=== PATIENT | male | born 1950 | race Caucasian/White ===

== ENCOUNTER 2017-02-25 16:44 | Inpatient (IN) | payer OTHER, MEDICARE ==
[2017-02-25] VITALS (7 sets, daily range): BP systolic 123–126; BP diastolic 44–47; PULSE 102–117; RESP 18; TEMP 93.8–94.1; O2SAT 98–100
[2017-02-25] MEDS ORDERED: MIDAZOLAM HCL 5 MG/ML VIAL (1 ML) ONE ×2 (16:56→17:42)
[2017-02-25 17:06] LABS: AUTOMATED NEUTROPHIL # 6.9 TH/MM3 (1.8-7.7); BASOPHIL # 0.1 TH/MM3 (0-0.2); BASOPHIL % 0.7 % (0.0-2.0); EOSINOPHIL # 0.6 TH/MM3 (0-0.4); EOSINOPHIL % 5.3 % (0.0-4.0); HEMATOCRIT 26.3 % (39.0-51.0); HEMO FLAGS DIFF FINAL; LYMPH % 23.9 % (9.0-44.0); LYMPHOCYTE # 2.7 TH/MM3 (1.0-4.8); MEAN CELL VOLUME 102.9 FL (80.0-100.0); MEAN CORPUSCULAR HEMOGLOBIN 34.8 PG (27.0-34.0); MEAN CORPUSCULAR HGB CONC 33.8 % (32.0-36.0); MONO % 9.1 % (0.0-8.0); PLATELET COUNT 128 TH/MM3 (150-450); RED BLOOD COUNT 2.56 MIL/MM3 (4.50-5.90); RED CELL DISTRIBUTION WIDTH 13.7 % (11.6-17.2); WHITE BLOOD COUNT 11.4 TH/MM3 (4.0-11.0)
[2017-02-25 17:08] LABS: I-STAT POTASSIUM 3.3 MMOL/L (3.5-4.9)
[2017-02-25 17:17] LABS: APTT (PATIENT) 32.5 SEC (24.3-30.1); INTERNATIONAL NORMALIZED RATIO 1.4 RATIO; PROTHROMBIN TIME - PATIENT 14.6 SEC (9.8-11.6)
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
[2017-02-25] MEDS ORDERED: MIDAZOLAM 100 MG/100 ML INJ 100 ML IV PRN (17:30)
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
[2017-02-25] MEDS ORDERED: MIDAZOLAM 100 MG/100 ML INJ 100 ML ONE (17:42)
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
[2017-02-25 18:39] LABS: BLOOD GAS BASE EXCESS -11.2 mmol/L (-2-2); BLOOD GAS CARBOXYHEMOGLOBIN 0.6 % (0-4); BLOOD GAS HCO3 17 mmol/L (22-26); BLOOD GAS METHEMOGLOBIN 1.3 % (0-2); BLOOD GAS O2 HGB SATURATION 97 % (90-100); BLOOD GAS OXYGEN CONTENT 11.2 Vol % (12.0-20.0); BLOOD GAS PCO2 55 mmHg (38-42); BLOOD GAS PO2 241 mmHg (61-120); BLOOD GAS TOTAL HGB 7.7 G/DL (12.0-16.0); TEMP CORR TO 98.6
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
[2017-02-25 18:41] LABS: CRITICAL VALUE YES; DRAW SITE ART LINE; FIO2 100 %; OXYGEN DEVICE VENTILATOR; STAT YES
[2017-02-25] MEDS ORDERED: TRANEXAMIC ACID 1,000 MG/100 ML NS INTRA-OP IV ONE ×2 (18:45)
[2017-02-25 18:47] LABS: AUTOMATED NEUTROPHIL # 11.5 TH/MM3 (1.8-7.7); BASOPHIL # 0.1 TH/MM3 (0-0.2); BASOPHIL % 0.6 % (0.0-2.0); EOSINOPHIL # 0.3 TH/MM3 (0-0.4); EOSINOPHIL % 1.9 % (0.0-4.0); LYMPH % 12.7 % (9.0-44.0); LYMPHOCYTE # 1.9 TH/MM3 (1.0-4.8); MEAN CELL VOLUME 97.4 FL (80.0-100.0); MEAN CORPUSCULAR HEMOGLOBIN 32.4 PG (27.0-34.0); MEAN CORPUSCULAR HGB CONC 33.3 % (32.0-36.0); MONO % 8.4 % (0.0-8.0); NEUT % 76.4 % (16.0-70.0); PLATELET COUNT 89 TH/MM3 (150-450); RED BLOOD COUNT 2.36 MIL/MM3 (4.50-5.90); RED CELL DISTRIBUTION WIDTH 16.3 % (11.6-17.2)
[2017-02-25] MEDS ORDERED: IOHEXOL 350 MG/ML 10 ML VIAL (for RAD DIAG) IVCONTRAST ONE (18:48)
[2017-02-25] MEDS ORDERED: ceFAZolin 2 GM PREMIX 50 ML IV ONE (18:55)
[2017-02-25 18:56] LABS: HEMO FLAGS AUTO DIFF
[2017-02-25] MEDS ORDERED: PHENYLEPHRINE HCL 10 MG/ML VIAL ONE (19:04)
[2017-02-25 19:23] LABS: APTT (PATIENT) 39.2 SEC (24.3-30.1); INTERNATIONAL NORMALIZED RATIO 1.6 RATIO; PROTHROMBIN TIME - PATIENT 15.7 SEC (9.8-11.6)
[2017-02-25 19:46] LABS: BLOOD GAS BASE EXCESS -9.3 mmol/L (-2-2); BLOOD GAS CARBOXYHEMOGLOBIN 0.5 % (0-4); BLOOD GAS HCO3 18 mmol/L (22-26); BLOOD GAS METHEMOGLOBIN 1.2 % (0-2); BLOOD GAS O2 HGB SATURATION 97 % (90-100); BLOOD GAS OXYGEN CONTENT 15.8 Vol % (12.0-20.0); BLOOD GAS PCO2 49 mmHg (38-42); BLOOD GAS PO2 279 mmHg (61-120); BLOOD GAS TOTAL HGB 11.1 G/DL (12.0-16.0); FIO2 83 %; OXYGEN DEVICE VENTILATOR; TEMP CORR TO 98.6; VENT SETTINGS O.R. GAS
[2017-02-25 19:47] LABS: STAT YES
[2017-02-25 19:49] LABS: CRITICAL VALUE YES; DRAW SITE O.R. GAS
[2017-02-25] MEDS ORDERED: SODIUM BICARBONATE 8.4% INJ 50 MEQ/50 ML SYR ONE (19:54)
[2017-02-25 20:00] LABS: AUTOMATED NEUTROPHIL # 11.7 TH/MM3 (1.8-7.7); BASOPHIL # 0.1 TH/MM3 (0-0.2); BASOPHIL % 0.7 % (0.0-2.0); EOSINOPHIL # 0.2 TH/MM3 (0-0.4); EOSINOPHIL % 1.2 % (0.0-4.0); HEMATOCRIT 33.3 % (39.0-51.0); LYMPH % 10.2 % (9.0-44.0); LYMPHOCYTE # 1.5 TH/MM3 (1.0-4.8); MEAN CELL VOLUME 93.9 FL (80.0-100.0); MEAN CORPUSCULAR HEMOGLOBIN 30.9 PG (27.0-34.0); MEAN CORPUSCULAR HGB CONC 32.9 % (32.0-36.0); MONO % 9.2 % (0.0-8.0); NEUT % 78.7 % (16.0-70.0); PLATELET COUNT 60 TH/MM3 (150-450); RED BLOOD COUNT 3.55 MIL/MM3 (4.50-5.90); RED CELL DISTRIBUTION WIDTH 16.2 % (11.6-17.2); WHITE BLOOD COUNT 14.9 TH/MM3 (4.0-11.0)
[2017-02-25 20:02] LABS: HEMO FLAGS AUTO DIFF
[2017-02-25] MEDS ORDERED: FUROSEMIDE 40 MG/4 ML VIAL ONE (20:02)
[2017-02-25 20:06] LABS: BANDS 12 % (0-6); EOSINOPHILS 1 % (0-4); METAMYELOCYTES 3 % (0-1); NEUTROPHIL # MANUAL DIFF 13.7 TH/MM3 (1.8-7.7); POLYS (SEG NEUTROPHILS) 76 % (16-70); WBC DIFF SAMPLE 100
[2017-02-25 20:07] LABS: ACANTHOCYTES OCC (NORMAL); PLATELET ESTIMATE SMEAR LOW (NORMAL); PLATELET MORPHOLOGY NORMAL (NORMAL); SCAN/DIFF FINAL DIFF MANUAL
[2017-02-25] MEDS ORDERED: CHLORHEXIDINE GLUCONATE 2 % 1 PACK (2 CLOTHS) TOP PRN (20:15)
[2017-02-25] MEDS ORDERED: SODIUM CHLORIDE 0.9% FLUSH 10 ML FLUSH IV FLUSH PRN (20:15)
[2017-02-25] MEDS ORDERED: MISCELLANEOUS NURSING INFORMATION XX SCH (20:15)
[2017-02-25 20:20] LABS: APTT (PATIENT) 56.7 SEC (24.3-30.1); INTERNATIONAL NORMALIZED RATIO 1.8 RATIO; PROTHROMBIN TIME - PATIENT 18.1 SEC (9.8-11.6)
[2017-02-25] MEDS ORDERED: TERBUTALINE INJ 1 MG/ML AMP SQ PRN (20:30)
[2017-02-25 20:34] LABS: BICARBONATE 20.6 MEQ/L (21.0-32.0)
[2017-02-25 20:49] LABS: ACANTHOCYTES OCC (NORMAL); BANDS 19 % (0-6); EOSINOPHILS 2 % (0-4); METAMYELOCYTES 1 % (0-1); MYELOCYTES 1 % (0-0); NEUTROPHIL # MANUAL DIFF 12.8 TH/MM3 (1.8-7.7); PLATELET ESTIMATE SMEAR LOW (NORMAL); PLATELET MORPHOLOGY NORMAL (NORMAL); POLYS (SEG NEUTROPHILS) 65 % (16-70); SCAN/DIFF FINAL DIFF MANUAL; WBC DIFF SAMPLE 100
[2017-02-25 21:12] LABS: CALCIUM-PROTEIN CORRECTED 7.6 MG/DL (8.5-10.1)
[2017-02-25] MEDS: PHENYLEPHRINE 40 MG in D5W 500 ML IV PRN (21:15)
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
--- NOTE | 2017-02-25 21:26 | RADRPT ---
EXAM DATE/TIME: 02/25/2017 19:48 [facility] COMPARISON: No previous studies available for comparison. INDICATIONS : Instrument count- Trauma alert. MEDICAL HISTORY : None. SURGICAL HISTORY : None. ENCOUNTER: Initial ACUITY: 1 day PAIN SCORE: Non-responsive. LOCATION: Abdomen. FINDINGS: A single AP image of the abdomen has been obtained. Surgical instruments are not seen. CONCLUSION: Surgical instruments are not seen. Javy Hong MD on February 25, 2017 at 21:23 Board Certified Radiologist. This report was verified electronically.
[2017-02-25 21:49] LABS: BLOOD GAS CARBOXYHEMOGLOBIN 1.1 % (0-4); BLOOD GAS HCO3 20 mmol/L (22-26); BLOOD GAS METHEMOGLOBIN 1.2 % (0-2); BLOOD GAS O2 HGB SATURATION 95 % (90-100); BLOOD GAS OXYGEN CONTENT 13.7 Vol % (12.0-20.0); BLOOD GAS PCO2 45 mmHg (38-42); BLOOD GAS PO2 92 mmHg (61-120); BLOOD GAS TOTAL HGB 10.2 G/DL (12.0-16.0); TEMP CORR TO 98.6
[2017-02-25 21:50] LABS: CRITICAL VALUE YES; DRAW SITE ALINE; FIO2 100 %; OXYGEN DEVICE VENTILATOR; STAT NO; ULNAR PULSE PRESENT
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
[2017-02-25 23:55] LABS: HEMATOCRIT 29.5 % (39.0-51.0)
[2017-02-26] VITALS (27 sets, daily range): BP systolic 40–118; BP diastolic 32–64; PULSE 1–130; RESP 18–26; TEMP 94–100.1; O2SAT 0–100
[2017-02-26] MEDS: SODIUM CHLOR 0.9% 1000 ML INJ 1,000 ML IV SCH ×3 (00:19→03:31)
[2017-02-26] MEDS ORDERED: TERBUTALINE INJ 1 MG/ML AMP SQ PRN (02:30)
[2017-02-26] MEDS ORDERED: MAGNESIUM SULFATE INJ 2 GM in SODIUM CHLORIDE 0.9% INJ 96 ML IV PRN (02:30)
[2017-02-26] MEDS ORDERED: CALCIUM GLUCONATE INJ 2 GM in DEXTROSE 5% IN WATER 100ML INJ 100 ML IV ONE ×2 (02:30)
[2017-02-26] MEDS ORDERED: SODIUM BICARBONATE 8.4% INJ 50 MEQ/50 ML SYR IV PUSH ONE (02:30)
[2017-02-26] MEDS ORDERED: SODIUM PHOSPHATE INJ 30 MMOL in SODIUM CHLOR 0.9% 250 ML INJ 240 ML IV PRN (02:30)
[2017-02-26] MEDS ORDERED: POTASSIUM CHLORIDE 25 MEQ EFFERVESCENT TAB PO PRN (02:30)
[2017-02-26] MEDS ORDERED: POTASSIUM PHOSPHATE MONOBASIC 500 MG TAB PO PRN (02:30)
[2017-02-26] MEDS ORDERED: POTASSIUM PHOSPHATE MONOBASIC 500 MG TAB PO/TUBE PRN (02:30)
[2017-02-26] MEDS ORDERED: MAGNESIUM OXIDE 400 MG TAB PO PRN (02:30)
[2017-02-26] MEDS ORDERED: POTASSIUM CHLOR 20 MEQ PREMIX 100 ML IV PRN ×2 (02:30)
[2017-02-26] MEDS ORDERED: MAGNESIUM SULFATE INJ 4 GM in SODIUM CHLORIDE 0.9% INJ 92 ML IV PRN (02:30)
[2017-02-26] MEDS ORDERED: POTASSIUM PHOSPHATE INJ 30 MMOL in SODIUM CHLOR 0.9% 250 ML INJ 250 ML IV PRN (02:30)
[2017-02-26] MEDS ORDERED: POTASSIUM CHLOR 40 MEQ PREMIX 100 ML IV PRN ×2 (02:30)
[2017-02-26] MEDS: NOREPINEPHRINE-DEXTROSE DRIP 250 ML IV PRN ×3 (02:32→11:49)
[2017-02-26] MEDS: PHENYLEPHRINE 40 MG in D5W 500 ML IV PRN ×2 (02:32→04:51)
[2017-02-26 03:35] LABS: AUTOMATED NEUTROPHIL # 12.2 TH/MM3 (1.8-7.7); BASOPHIL # 0.1 TH/MM3 (0-0.2); BASOPHIL % 0.6 % (0.0-2.0); EOSINOPHIL # 0.1 TH/MM3 (0-0.4); HEMATOCRIT 27.7 % (39.0-51.0); HEMO FLAGS DIFF FINAL; LYMPH % 7.3 % (9.0-44.0); LYMPHOCYTE # 1.1 TH/MM3 (1.0-4.8); MEAN CELL VOLUME 93.8 FL (80.0-100.0); MEAN CORPUSCULAR HEMOGLOBIN 31.4 PG (27.0-34.0); MEAN CORPUSCULAR HGB CONC 33.4 % (32.0-36.0); MONO % 10.4 % (0.0-8.0); NEUT % 80.7 % (16.0-70.0); PLATELET COUNT 135 TH/MM3 (150-450); RED BLOOD COUNT 2.96 MIL/MM3 (4.50-5.90); RED CELL DISTRIBUTION WIDTH 16.5 % (11.6-17.2); WHITE BLOOD COUNT 15.1 TH/MM3 (4.0-11.0)
[2017-02-26 03:42] LABS: INTERNATIONAL NORMALIZED RATIO 1.2 RATIO; PROTHROMBIN TIME - PATIENT 12.5 SEC (9.8-11.6)
[2017-02-26 03:58] LABS: BICARBONATE 18.5 MEQ/L (21.0-32.0); MAGNESIUM 1.5 MG/DL (1.5-2.5); POTASSIUM 4.3 MEQ/L (3.5-5.1); TOTAL BILIRUBIN ADULT 2.1 MG/DL (0.2-1.0)
[2017-02-26] MEDS ORDERED: CHLORHEXIDINE GLUCONATE 2 % 1 PACK (2 CLOTHS) TOP SCH (04:00)
[2017-02-26 04:01] LABS: CALCIUM-PROTEIN CORRECTED 7.1 MG/DL (8.5-10.1)
--- NOTE | 2017-02-26 04:38 | PD.PROCEDR ---
Procedure Note Procedure Centerline placement A time-out was completed verifying correct patient, procedure, site, positioning , and special equipment if applicable. The patient was placed in a dependent position appropriate for central line placement based on the vein to be cannulated. The patients left shoulder was prepped and draped in sterile fashion. 1% Lidocaine was used to anesthetize the surrounding skin area. A triple lumen 9-[place] Cord[place] catheter was introduced into the the left subclavian vein using the Seldinger technique. The catheter was threaded smoothly over the guide wire and appropriate blood return was obtained. Each lumen of the catheter was evacuated of air and flushed with sterile saline. The catheter was then sutured in place to the skin and a sterile dressing applied. Perfusion to the extremity distal to the point of catheter insertion was checked and found to be adequate. Estimated Blood Loss: 1ml The patient tolerated the procedure well and there were no complications. Tony Leach MD Feb 26, 2017 04:38
--- NOTE | 2017-02-26 06:06 | RADRPT ---
EXAM DATE/TIME: 02/26/2017 03:12 [facility] COMPARISON: CHEST SINGLE AP, February 25, 2017, 16:45. INDICATIONS : Central line placement. MEDICAL HISTORY : None. SURGICAL HISTORY : None. ENCOUNTER: Subsequent ACUITY: 2 days PAIN SCORE: Non-responsive. LOCATION: Bilateral FINDINGS: Portable AP view of the chest demonstrates a normal-sized cardiac silhouette in this patient post med heather sternotomy. ETT and nasogastric tube are present. Left subclavian central line has been placed an d the distal tip is at the superior vena cava and brachiocephalic vein junction. Left chest tube is p resent and no pneumothorax is visualized. There is bibasilar airspace opacity. CONCLUSION: 1. Left subclavian central line distal tip is at the SVC brachiocephalic vein junction. No pneumothor ax is seen. 2. Left chest tube remains present and there is bibasilar opacity representing either atelectasis or consolidation. Javy Beck MD on February 26, 2017 at 6:03 Board Certified Radiologist. This report was verified electronically.
[2017-02-26 08:02] LABS: BLOOD GAS BASE EXCESS -12.6 mmol/L (-2-2); BLOOD GAS CARBOXYHEMOGLOBIN 0.8 % (0-4); BLOOD GAS HCO3 15 mmol/L (22-26); BLOOD GAS METHEMOGLOBIN 1.2 % (0-2); BLOOD GAS O2 HGB SATURATION 92 % (90-100); BLOOD GAS OXYGEN CONTENT 11.2 Vol % (12.0-20.0); BLOOD GAS PCO2 43 mmHg (38-42); BLOOD GAS PO2 76 mmHg (61-120); BLOOD GAS TOTAL HGB 8.5 G/DL (12.0-16.0); CRITICAL VALUE YES; DRAW SITE ART LINE; FIO2 100 %; NUMBER OF ARTERIAL PUNCTURES 0; OXYGEN DEVICE VENTILATOR; STAT YES; TEMP CORR TO 98.6; ULNAR PULSE PRESENT; VENT SETTINGS PRVC18/550/1.0/+8
[2017-02-26] MEDS ORDERED: SODIUM CHLOR 0.9% 250 ML INJ 250 ML IV ONE ×2 (08:15)
[2017-02-26] MEDS: MAGNESIUM SULFATE 1 GM PREMIX 100 ML IV SCH ×2 (08:45→08:50)
[2017-02-26] MEDS ORDERED: CALCIUM CHLORIDE 10% SOLN 1 GRAM/10 ML SYR ONE ×2 (08:50→09:03)
[2017-02-26] MEDS ORDERED: CALCIUM GLUCONATE INJ 3 GM in SODIUM CHLORIDE 0.9% INJ 100 ML IV ONE (09:00)
[2017-02-26 09:16] LABS: BLOOD GAS BASE EXCESS -12.5 mmol/L (-2-2); BLOOD GAS CARBOXYHEMOGLOBIN 0.8 % (0-4); BLOOD GAS HCO3 14 mmol/L (22-26); BLOOD GAS O2 HGB SATURATION 90 % (90-100); BLOOD GAS OXYGEN CONTENT 12.9 Vol % (12.0-20.0); BLOOD GAS PCO2 36 mmHg (38-42); BLOOD GAS PO2 63 mmHg (61-120); BLOOD GAS TOTAL HGB 10.2 G/DL (12.0-16.0); CRITICAL VALUE YES; OXYGEN DEVICE VENTILATOR; TEMP CORR TO 98.6
[2017-02-26 09:17] LABS: DRAW SITE ART LINE; FIO2 50 %; NUMBER OF ARTERIAL PUNCTURES 0; STAT YES; ULNAR PULSE PRESENT; VENT SETTINGS PRVC22/550/1.3/+8
[2017-02-26 09:35] LABS: HEMATOCRIT 30.8 % (39.0-51.0); MEAN CELL VOLUME 92.4 FL (80.0-100.0); MEAN CORPUSCULAR HEMOGLOBIN 31.5 PG (27.0-34.0); PLATELET COUNT 71 TH/MM3 (150-450); RED BLOOD COUNT 3.33 MIL/MM3 (4.50-5.90); RED CELL DISTRIBUTION WIDTH 16.2 % (11.6-17.2); WHITE BLOOD COUNT 10.3 TH/MM3 (4.0-11.0)
[2017-02-26 09:37] LABS: REVIEW FLAG FINAL
[2017-02-26 09:45] LABS: APTT (PATIENT) 29.6 SEC (24.3-30.1); INTERNATIONAL NORMALIZED RATIO 1.2 RATIO; PROTHROMBIN TIME - PATIENT 11.9 SEC (9.8-11.6)
[2017-02-26] MEDS: ceFAZolin 2 GM PREMIX 50 ML ONE (09:50)
[2017-02-26] MEDS: HEPARIN SODIUM - SQ 10,000 UNITS/ML VIAL ONE (09:59)
[2017-02-26 10:11] LABS: BICARBONATE 15.6 MEQ/L (21.0-32.0); POTASSIUM 4.2 MEQ/L (3.5-5.1)
[2017-02-26 10:20] LABS: BLOOD GAS BASE EXCESS -12.6 mmol/L (-2-2); BLOOD GAS CARBOXYHEMOGLOBIN 0.6 % (0-4); BLOOD GAS HCO3 15 mmol/L (22-26); BLOOD GAS METHEMOGLOBIN 1.4 % (0-2); BLOOD GAS O2 HGB SATURATION 95 % (90-100); BLOOD GAS OXYGEN CONTENT 15.9 Vol % (12.0-20.0); BLOOD GAS PCO2 47 mmHg (38-42); BLOOD GAS PO2 109 mmHg (61-120); BLOOD GAS TOTAL HGB 11.8 G/DL (12.0-16.0); TEMP CORR TO 98.6
[2017-02-26 10:21] LABS: CRITICAL VALUE YES
[2017-02-26 10:22] LABS: DRAW SITE ART LINE; FIO2 100 %; OXYGEN DEVICE VENTILATOR; STAT YES
--- NOTE | 2017-02-26 10:49 | HHI.CCPN ---
Subjective Remarks/Hospital Course Ongoing lactic acidosis and fluid requirements. Appears to have active intraabdominal bleeding. Back to OR with Surgery. Objective Vital Signs Date Time Temp Pulse Resp B/P (MAP) Pulse Ox O2 Delivery O2 Flow Rate FiO2 02/26/17 09:29 98.2 122 22 103/48 92 02/26/17 09:00 50 02/26/17 07:00 Mechanical Ventilator 02/25/17 16:45 15.00 Intake and Output 02/26/17 02/26/17 02/27/17 08:00 16:00 00:00 Intake Total 4470 ml 5217 ml Output Total 710 ml Balance 3760 ml 5217 ml Result Diagram: 02/26/1715 02/26/1715 Other Results Laboratory Tests Test 02/25/17 18:30 02/25/17 19:29 02/25/17 21:38 02/26/17 07:50 Blood Gas Puncture Site ART LINE O.R. GAS MARILYN ART LINE Blood Gas Patient Temperature 98.6 98.6 98.6 98.6 Blood Gas HCO3 17 mmol/L (22-26) 18 mmol/L (22-26) 20 mmol/L (22-26) 15 mmol/L (22-26) Blood Gas Base Excess -11.2 mmol/L (-2-2) -9.3 mmol/L (-2-2) -6.0 mmol/L (-2-2) -12.6 mmol/L (-2-2) Blood Gas Oxygen Saturation 97 % (90-100) 97 % (90-100) 95 % (90-100) 92 % ( 90-100) Arterial Blood pH 7.11 (7.380-7.420) 7.18 (7.380-7.420) 7.27 (7.380-7.420) 7.16 (7.380-7.420) Arterial Blood Partial Pressure CO2 55 mmHg (38-42) 49 mmHg (38-42) 45 mmHg (38-42) 43 mmHg (38-42) Arterial Blood Partial Pressure O2 241 mmHg (61-120) 279 mmHg (61-120) 92 mmHg (61-120) 76 mmHg (61-120) Arterial Blood Oxygen Content 11.2 Vol % (12.0-20.0) 15.8 Vol % (12.0-20.0) 13.7 Vol % (12.0-20.0) 11.2 Vol % (12.0-20.0) Arterial Blood Carboxyhemoglobin 0.6 % (0-4) 0.5 % (0-4) 1.1 % (0-4) 0.8 % (0-4) Arterial Blood Methemoglobin 1.3 % (0-2) 1.2 % (0-2) 1.2 % (0-2) 1.2 % (0-2) Blood Gas Hemoglobin 7.7 G/DL (12.0-16.0) 11.1 G/DL (12.0-16.0) 10.2 G/DL (12.0-16.0) 8.5 G/DL (12.0-16.0) Oxygen Delivery Device VENTILATOR VENTILATOR VENTILATOR VENTILATOR Blood Gas Inspired Oxygen 100 % 83 % 100 % 100 % Blood Gas Ventilator Setting O.R. GAS PRVC18/550/+8/1.0 PRVC18/550/1.0/+8 Test 02/26/17 09:05 02/26/17 10:11 Blood Gas Puncture Site ART LINE ART LINE Blood Gas Patient Temperature 98.6 98.6 Blood Gas HCO3 14 mmol/L (22-26) 15 mmol/L (22-26) Blood Gas Base Excess -12.5 mmol/L (-2-2) -12.6 mmol/L (-2-2) Blood Gas Oxygen Saturation 90 % (90-100) 95 % (90-100) Arterial Blood pH 7.21 (7.380-7.420) 7.13 (7.380-7.420) Arterial Blood Partial Pressure CO2 36 mmHg (38-42) 47 mmHg (38-42) Arterial Blood Partial Pressure O2 63 mmHg (61-120) 109 mmHg (61-120) Arterial Blood Oxygen Content 12.9 Vol % (12.0-20.0) 15.9 Vol % (12.0-20.0) Arterial Blood Carboxyhemoglobin 0.8 % (0-4) 0.6 % (0-4) Arterial Blood Methemoglobin 1.0 % (0-2) 1.4 % (0-2) Blood Gas Hemoglobin 10.2 G/DL (12.0-16.0) 11.8 G/DL (12.0-16.0) Oxygen Delivery Device VENTILATOR VENTILATOR Blood Gas Ventilator Setting PRVC22/550/1.3/+8 Blood Gas Inspired Oxygen 50 % 100 % Imaging Last 24 hours Impressions Pelvis X-Ray 02/25/17 1649 Signed Impressions: Service Date/Time: January 16:45 - CONCLUSION: Nondisplaced fractures involving the right superior and inferior pubic rami. Jacob Li MD Head CT 02/25/171648 Signed Impressions: Service Date/Time: January 17:16 - CONCLUSION: Negative trauma study. Jacob Li MD Chest X-Ray 02/25/171648 Signed Impressions: Service Date/Time: January 16:45 - CONCLUSION: 1. No intubation and placement of left-sided chest tube. 2. Mild patchy opacity at the left lung base. Jacob Li MD Chest X-Ray 02/25/17 0000 Signed Impressions: Service Date/Time: January 16:45 - CONCLUSION: Negative trauma study. Jacob Li MD Objective Remarks GENERAL: Sedated and intubated elderly appearing gentleman SKIN: Focused skin assessment warm/dry. Multiple bruising on the bilateral flank area and left inner thigh and lower leg area HEAD: Atraumatic. Normocephalic. EYES: Pupils equal and round. No scleral icterus. No injection or drainage. ENT: No nasal bleeding or discharge. Mucous membranes pink and moist. NECK: Trachea midline. Orally intubated. CARDIOVASCULAR: Regular rate and rhythm. No murmur appreciated. RESPIRATORY: Clear to auscultation. Breath sounds decreased in bases. GASTROINTESTINAL: Abdomen soft, non-tender, distended. Quiet. MUSCULOSKELETAL: No obvious deformities. No clubbing. No cyanosis. No edema. Tepid. NEUROLOGICAL: Sedated and intubated No obvious cranial nerve deficits. A/P Assessment and Plan Respiratory failure - Intubated for an airway protection - Vent bundle - SBT when hemodynamically stable - CXR and ABG daily Coagulopathy - Underlying liver cancer - Transfused with PRBCs, FFP's, cryoprecipitate, and platelets in the OR - Monitor PT/INR Anemia blood loss - Hemoperitoneum - Status post liver laceration repair - Transfuse for hemoglobin less than 7 Liver disease - Traumatic - status post repair in the OR - Underlying malignancy - supportive care Pelvic fracture - Conservative management - Further per trauma surgeon DVT GI prophylaxis - Teds SCDs - No pharmacological DVT prophylaxis due to acute bleed - IV Pepcid Overall impression: Critically ill with ongoing intraabdominal hemorrhage and hypovolemic shock. Unstable and returning to OR. Critical care 45 mins Pedro Fountain MD Feb 26, 2017 10:49
[2017-02-26] MEDS ORDERED: EPINEPHrine HCL (1:1000) 1 MG/ML VIAL ONE (10:50)
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
[2017-02-26 11:24] LABS: BLOOD GAS BASE EXCESS -12.8 mmol/L (-2-2); BLOOD GAS CARBOXYHEMOGLOBIN 0.8 % (0-4); BLOOD GAS HCO3 16 mmol/L (22-26); BLOOD GAS METHEMOGLOBIN 1.1 % (0-2); BLOOD GAS O2 HGB SATURATION 92 % (90-100); BLOOD GAS OXYGEN CONTENT 16.2 Vol % (12.0-20.0); BLOOD GAS PCO2 55 mmHg (38-42); BLOOD GAS PO2 78 mmHg (61-120); BLOOD GAS TOTAL HGB 12.5 G/DL (12.0-16.0); CRITICAL VALUE YES; OXYGEN DEVICE VENTILATOR; TEMP CORR TO 98.6
[2017-02-26 11:25] LABS: DRAW SITE ART LINE; FIO2 100 %; NUMBER OF ARTERIAL PUNCTURES 0; STAT YES; ULNAR PULSE PRESENT; VENT SETTINGS PRVC22/550/1.3/+8
[2017-02-26] MEDS ORDERED: SODIUM BICARBONATE 8.4% INJ 50 MEQ/50 ML SYR ONE (12:12)
--- NOTE | 2017-02-26 12:35 | PD.OP ---
Operative Report Hemorrhagic shock, liver, spleen injury, status post exploratory laparotomy with hemostasis of liver bleeding, history of liver cancer and cirrhosis Postoperative Diagnosis: Hemorrhagic shock, liver, spleen injury, status post exploratory laparotomy with hemostasis of liver bleeding, history of liver cancer and cirrhosis, bleeding from omentum, bleeding from surface of the liver, retrocaval bleeding Procedure: Reopening of previous laparotomy, packing of the liver, hemostatis of omentum Anesthesia: Gen. Surgeon: Erika Jimenez Insurance Billing Clerk(s): First Asst.OR Operation and Findings: The 66year-old male with history of liver cancer status post radiation history of cirrhosis. Patient presented last night and was explored secondary to hypotension and intra-abdominal bleeding. Early in the morning was noticed that patient has a picture of hemorrhagic shock responding temporally to transfusion of blood units. His pH is 7.1, he has a large base deficit and a distended large abdomen and also shows signs of beginning abdominal compartment syndrome with high CVP and increasing peak airway with pressures.With this findings patient was emergently brought to the OR for exploration, critical picture was discussed with his . Technique: Patient was brought into the operating room in already intubated condition. After administration of general anesthesia ,the previous laparotomy midline incision was opened up. Upon entering of the abdomen, there is large amount of blood partial also mixed with ascitic fluid. Packing of the left and right upper quadrants were performed. There are multiple bleeding points of the omentum here bleeding was stopped with combination of cautery and figure-of- eight sutures with 2-0 Vicryl. Attention was returned to potential source of the bleeding, the spleen was explored,it it shows no bleeding. The liver has a cirrhotic appearance on the right and left lobe of the liver ,there is eschar likely from the yesterday's surgery. There is surface areas of the liver, which are bleeding and stopped with high current cautery. The right lobe of the liver was packed and attention was returned to the left lobe of the liver. There is bleeding coming mostly from the retrocaval area. Packing was applied and observed it shows good hemostasis. At this stage it was noticed by anesthesia that the patient's pressure dropped to the range of 50 systolic. Packs were removed for potential pressure to the daniel cava .It was seen that the right side of the liver was hemostatic, still bleeding however from the retrocaval area. Blood pressure improved as patient was started on epinephrine. The left lobe of the liver was repacked. The upper portion of the incision was closed with large nylon suture for extra tamponade effect. An abthera dressing was taken and inserted into the abdomen obtaining a good seal. Patient was labile during the procedure ,he received a total of 8 units of blood .no FFP's platelets, he was also started on epinephrine drip. This patient had to be packed and unpacked several times so that we could not able to keep accurate account of the packing. Patient if stabilizes will need - reexploration and removal of the packs followed by an x-ray according to the protocol. Patient's remains critical after the procedure-this was discussed with with the interventionalist,if patient stabilizes we'll plan potential angiogram. Patient's family was updated after the procedure about his critical condition Erika Jimenez MD Feb 26, 2017 12:35
[2017-02-26] MEDS ORDERED: SODIUM CHLORIDE IV SCH ×2 (13:00)
[2017-02-26] MEDS ORDERED: VASOPRESSIN IV SCH ×2 (13:00)
--- NOTE | 2017-02-26 13:06 | DEATH SUM ---
Pronouncement Date Pronounced : Feb 26, 2017 Time Of : 13:04 Pronouncement Called to pronounce of patient. Identified patient as Christopher Gramajo with wrist band MR# [id number]. Patient with no cardiac activity in 2 separate leads and no palpable/auscible cardiac activity. Patient with no spontaneous respirations, no corneal reflex or response to painful stimuli. Pupils fixed and dilated. Preliminary Cause of : Cardiac arrest Candido Chapman MD Feb 26, 2017 13:06
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
--- NOTE | 2017-02-26 16:06 | EKG ---
Date Performed: 02/25/2017 Time Performed: 16:56:19 PTAGE: 89 years EKG: ATRIAL FIBRILLATION WITH RAPID VENTRICULAR RESPONSE RIGHT BUNDLE BRANCH BLOCK ABNORMAL ECG NO PREVIOUS TRACING DOCTOR: Laura Bradley Interpretating Date/Time 02/26/2017 16:05:26
== END 2017-02-26 15:10 | disposition expired | DRG 963 ==
LOC: NEPI 16:44 → EDBD 17:19 → NEDA 17:19 → N03B 20:29
PROVIDERS: ADMIT Surgery; ATTEND Surgery
PROC: 30233K1 Transfusion of Nonautologous Frozen Plasma into Peripheral Vein, Percutaneous Approach (ICD-10-PCS; 2017-02-25)
PROC: 30233N1 Transfusion of Nonautologous Red Blood Cells into Peripheral Vein, Percutaneous Approach (ICD-10-PCS; 2017-02-25)
PROC: 30233R1 Transfusion of Nonautologous Platelets into Peripheral Vein, Percutaneous Approach (ICD-10-PCS; 2017-02-25)
PROC: 30233M1 Transfusion of Nonautologous Plasma Cryoprecipitate into Peripheral Vein, Percutaneous Approach (ICD-10-PCS; 2017-02-25)
PROC: 0W9B30Z Drainage of Left Pleural Cavity with Drainage Device, Percutaneous Approach (ICD-10-PCS; 2017-02-25)
PROC: 0BH17EZ Insertion of Endotracheal Airway into Trachea, Via Natural or Artificial Opening (ICD-10-PCS; 2017-02-25)
PROC: 0W3G0ZZ Control Bleeding in Peritoneal Cavity, Open Approach (ICD-10-PCS; principal; 2017-02-25 17:54)
PROC: 5A1935Z Respiratory Ventilation, Less than 24 Consecutive Hours (ICD-10-PCS; 2017-02-25 17:54)
PROC: 02HV33Z Insertion of Infusion Device into Superior Vena Cava, Percutaneous Approach (ICD-10-PCS; 2017-02-26)
PROC: 0W3G0ZZ Control Bleeding in Peritoneal Cavity, Open Approach (ICD-10-PCS; 2017-02-26)
DX: S36.118A Other injury of liver, initial encounter (principal); G93.40 Encephalopathy, unspecified; S27.329A Contusion of lung, unspecified, initial encounter; S27.1XXA Traumatic hemothorax, initial encounter; S32.591A Other specified fracture of right pubis, initial encounter for closed fracture; T79.4XXA Traumatic shock, initial encounter; J96.01 Acute respiratory failure with hypoxia; J96.02 Acute respiratory failure with hypercapnia; N17.9 Acute kidney failure, unspecified; D68.8 Other specified coagulation defects; C78.00 Secondary malignant neoplasm of unspecified lung; S36.892A Contusion of other intra-abdominal organs, initial encounter; C22.9 Malignant neoplasm of liver, not specified as primary or secondary; D62 Acute posthemorrhagic anemia; E87.2 Acidosis; S37.011A Minor contusion of right kidney, initial encounter; I46.9 Cardiac arrest, cause unspecified; S02.2XXA Fracture of nasal bones, initial encounter for closed fracture; Z66 Do not resuscitate; T79.A3XA Traumatic compartment syndrome of abdomen, initial encounter; E83.51 Hypocalcemia; D69.59 Other secondary thrombocytopenia; R73.9 Hyperglycemia, unspecified; R58 Hemorrhage, not elsewhere classified; K66.0 Peritoneal adhesions (postprocedural) (postinfection); Z92.3 Personal history of irradiation; V49.59XA Passenger injured in collision with other motor vehicles in traffic accident, initial encounter; Y92.410 Unspecified street and highway as the place of occurrence of the external cause; R40.2412 Glasgow coma scale score 13-15, at arrival to emergency department
CPT/HCPCS: 31500; 32551; 36430; 36556; 70450; 70486; 71010; 71260; 72125; 72170; 74000; 74177; 80048; 80053; 82330; 82435; 82565; 82805; 82947; 83605; 83735; 84100; 84132; 84155; 84295; 84484; 84520; 85007; 85014; 85018; 85025; 85027; 85049; 85384; 85610; 85730; 86850; 86900; 86901; 86920; 86927; 86965; 87641; 93005; 94002; 94003; 96374; 96375; J0171; J0610; J0690; J1644; J1940; J2250; J2370; J3475; J7030; J7050; J7060; P9016; P9017; P9035; Q9967